=== PATIENT | female | born 1975 | race Two or more races ===

== ENCOUNTER → 2024-08-25 | Outpatient (CLI) | payer OTHER, SELFPAY ==
--- NOTE | 2024-08-25 08:45 | XR_ITS ---
Examination: Transvaginal ultrasound of the pelvis, complete Technique: Transvaginal sonographic images pelvis performed using ramos scale imaging Exam date and time: August 25, 2024 0907 hours INDICATIONS: Diagnosis infertility FINDINGS: Uterus 9.1 cm endometrial stripe 0.6 cm Fundal areas of fibroid degeneration 4.3 cm, 1.6 cm Mild free fluid in the cervix Right ovary 2.4 cm arterial flow Left ovary obscured by bowel gas IMPRESSION: Uterine areas of fibroid degeneration as above Recommend 6 month follow-up transvaginal pelvic sonography
[2024-08-25 11:09] LABS: Follicle Stimulating Hormone 6.44 mIU/mL (See Note)
[2024-08-25 11:10] LABS: Free T3 3.2 pg/mL (2.3-4.2); Free T4 (Free Thyroxine) 1.36 ng/dL (0.89-1.76); Thyroid Stimulating Hormone 1.32 uIU/mL (0.55-4.78)
[2024-08-25 11:50] LABS: HCG,Qualitative Serum Negative
== END | disposition home or self-care (01) ==
LOC: CDIM 08:47 → COPL 09:27
PROVIDERS: PCP Registered Nurse General Practice; Referring Provider Registered Nurse General Practice; Visit Provider Registered Nurse General Practice
DX: N97.0 Female infertility associated with anovulation (principal); E27.9 Disorder of adrenal gland, unspecified; E34.9 Endocrine disorder, unspecified
CPT/HCPCS: 36415; 76830; 82627; 82670; 83001; 83002; 84144; 84403; 84439; 84443; 84481; 84703; 86800